=== PATIENT | male | born 1980 | race Caucasian/White ===

== ENCOUNTER 2023-02-23 14:33 | Emergency (ER) | payer BC ==
[2023-02-23] MEDS ORDERED: Lidocaine 1% w/Epinephrine 1:100K 20 ML VIAL ONE (16:39)
== END 2023-02-23 17:15 | disposition home or self-care (01) ==
LOC: ERS 14:33
DX: L03.115 Cellulitis of right lower limb (principal); L02.611 Cutaneous abscess of right foot
CPT/HCPCS: 10060